=== PATIENT | female | born 1975 | race Caucasian/White ===

== ENCOUNTER 2018-01-14 10:14 | Day surgery (SDC) | payer MEDICAID | END 2018-01-15 09:21 | disposition home or self-care (01) | LOC: SDS 10:14 | DX: Z30.2 Encounter for sterilization (principal); Z53.9 Procedure and treatment not carried out, unspecified reason ==

== ENCOUNTER 2018-03-04 05:29 | Day surgery (SDC) | payer MEDICAID ==
[2018-03-04] MEDS ORDERED: SUCCINYLCHOLINE CHLORIDE 100 MG/5 ML SYG IV (06:45)
[2018-03-04] MEDS ORDERED: ROCURONIUM 50 MG INJ (06:45)
[2018-03-04] MEDS ORDERED: PROPOFOL 20 ML (06:45)
[2018-03-04] MEDS ORDERED: MIDAZOLAM 1 MG/ML 2 ML INJ (06:46)
[2018-03-04] MEDS ORDERED: FENTAnyl 50 MCG/ML VIAL (06:46)
[2018-03-04 06:49] LABS: ADD MAN DIFF? NO
[2018-03-04 06:52] LABS: BASOPHIL # 0.1 10^3/ul (0.0-0.1); BASOPHILS % 0.8 % (0.0-2.0); EOSINOPHILS # 0.1 10^3/ul (0.0-0.5); EOSINOPHILS % 1.5 % (0.0-7.0); HEMATOCRIT 39.8 % (37.0-47.0); HEMOGLOBIN 13.8 g/dl (12.0-16.0); LYMPHOCYTES # 1.9 10^3/ul (0.8-2.9); LYMPHOCYTES % 28.7 % (15.0-51.0); MEAN CORPUSCULAR HEMOGLOBIN 32.2 pg (29.0-33.0); MEAN CORPUSCULAR HGB CONC 34.7 g/dl (32.0-37.0); MEAN CORPUSCULAR VOLUME 92.8 fl (82.0-101.0); MEAN PLATELET VOLUME 10.8 fl (7.4-10.4); MONOCYTE # 0.8 10^3/ul (0.3-0.9); MONOCYTES % 12.6 % (0.0-11.0); NEUTROPHIL # 3.7 10^3/ul (1.6-7.5); NEUTROPHILS % 56.2 % (39.0-77.0); PLATELET COUNT 350 10^3/UL (140-415); RED BLOOD COUNT 4.29 10^6/ul (4.20-5.40); RED CELL DISTRIBUTION WIDTH 12.3 % (11.5-14.5)
[2018-03-04 06:52] LABS: WHITE BLOOD COUNT 6.6 10^3/ul (4.8-10.8)
[2018-03-04] MEDS ORDERED: PHENYLephrine 10 MG INJ (06:52)
[2018-03-04] MEDS ORDERED: KETOROLAC 30 MG INJ (07:38)
[2018-03-04] MEDS ORDERED: ONDANSETRON 4 MG INJ (07:39)
[2018-03-04] MEDS ORDERED: MEPERIDINE 25 MG INJ IV (09:00)
[2018-03-04] MEDS ORDERED: METOCLOPRAMIDE 10 MG INJ IV (09:00)
[2018-03-04] MEDS ORDERED: ONDANSETRON 4 MG INJ IV (09:00)
[2018-03-04] MEDS ORDERED: FENTAnyl 50 MCG/ML VIAL IV ×2 (09:00)
[2018-03-04] MEDS ORDERED: HYDROmorphONE (0.2 MG/ML) 10ML SYG IV ×2 (09:00)
== END 2018-03-04 10:40 | disposition home or self-care (01) ==
LOC: SDS 05:29
DX: Z30.2 Encounter for sterilization (principal)
CPT/HCPCS: 58565; 84703; 85025; 86900; 86901